=== PATIENT | female | born 1990 | race Caucasian/White ===

== ENCOUNTER 2017-06-23 18:01 | Day surgery (SDC) | payer BC ==
[2017-06-23 18:33] VITALS: BMI 27.6
[2017-06-23 18:34] VITALS: BP 118/72; TEMP 99.4
[2017-06-23 19:27] LABS: Amnisure Test No Membranes Rupture (No Rupture)
--- NOTE | 2017-06-23 21:13 | PRG ---
DATE OF SERVICE: 06/23/2017 PRIMARY OB: Dr. Dada Grigsby. CHIEF COMPLAINT: Abdominal pains. HISTORY OF PRESENT ILLNESS: The patient is a 27-year-old G1, P0 female with an intrauterine pregnanc y at 40 weeks and 0 days who has presented today with uterine contractions that have been off and on through the day. She reports the contractions are not severe at this time. She also reports that sh e had a little bit of leakage of fluid and was unsure if she had ruptured membranes. The patient barba s reports she had sex earlier today. She denies any urinary urgency or frequency. She denies vagina l bleeding. She reports she had a cold last week, but denies any other illnesses. PAST MEDICAL HISTORY: Negative. PAST SURGICAL HISTORY: Negative. OBSTETRIC HISTORY: This is her first . SOCIAL HISTORY: Denies alcohol, tobacco or drug use during this . She does report alcohol use prior to the . MEDICATIONS: vitamins. ALLERGIES: No known drug allergies. OB LABS: Blood type is O positive, antibody screen is negative. She is rubella immune, hepatitis B surface antigen is nonreactive, RPR nonreactive, HIV nonreactive. One hour Glucola is 80. Her third trimester HIV and RPR is negative and she is GBS positive. REVIEW OF SYSTEMS: Per HPI. PHYSICAL EXAMINATION: VITAL SIGNS: Blood pressure 118/72, heart rate of 75, respiratory rate of 20, temperature 99.4. GENERAL: She appears to be in no acute distress. She is alert and oriented, and cooperative and ple asant to interact with. HEAD: Normocephalic, atraumatic. LUNGS: Clear to auscultation bilaterally. HEART: Has regular rate and rhythm. ABDOMEN: Gravid, soft, nontender to palpation. EXTREMITIES: Nontender, nonedematous. CERVICAL EXAM: Per nursing staff is closed, thick and high. DIAGNOSTICS: heart tracing performed for threatened labor for approximately 40 minutes. Basel ine was noted to be in the 120s with moderate long-term variability, positive accelerations, no decel erations. Tocometer shows a lot of irritability, but no regular contraction pattern. AmniSure test is negative. ASSESSMENT AND PLAN: The patient is a 27-year-old G1, P0 female followed by Dr. Grigsby, who has prese nted today at 40 weeks gestation with irritability in latent labor. No signs of rupture of membranes . Fetus has a category 1 tracing. She is GBS positive. The patient has an appointment this Suly combs with Dr. Lange one of the Dr. Grigsby's partners, and is scheduled for induction of labor on . The patient is being discharged home with term labor precautions.
== END 2017-06-23 19:40 | disposition home or self-care (01) ==
LOC: L&D/OP 18:01
PROVIDERS: ATTEND Obstetrics & Gynecology
DX: O99.89 Other specified diseases and conditions complicating pregnancy, childbirth and the puerperium (principal); R10.9 Unspecified abdominal pain; Z3A.40 40 weeks gestation of pregnancy; Z79.899 Other long term (current) drug therapy
CPT/HCPCS: 84112; 99283

== ENCOUNTER 2017-07-01 14:10 | Inpatient (IN) | payer BC ==
[~2017-07-01 14:10] MED LIST: Bupivacaine HCl 0.5%/Epinephrine 1:200,000/PF 30 ml Vial ONE; Bupivacaine PF 0.5% 30 ML VIAL ONE; Bupivacaine/Epinephrine 0.25% 30 ML VIAL ONE; Lidocaine 2% PF 10 ML AMP (For Epidural Use) ONE
[2017-07-01] MEDS ORDERED: Promethazine HCl 25 MG/ML VIAL IM PRN (22:29)
[2017-07-01] MEDS ORDERED: Acetaminophen/Codeine 30-300mg Tablet PO PRN ×2 (22:29)
[2017-07-01] MEDS ORDERED: LR 500 ML/Oxytocin 10 units 500 ML IV SCH (22:29)
[2017-07-01] MEDS ORDERED: LR / Pitocin 40 units/1000 ml 1,000 ML IV PRN (22:29)
[2017-07-01] MEDS ORDERED: Lidocaine 1% (PF) 30 ML VIAL SC PRN (22:29)
[2017-07-01] MEDS ORDERED: Ondansetron HCl/PF 4 MG/2 ML Vial IVP PRN (22:29)
[2017-07-01] MEDS ORDERED: Ibuprofen 800 MG TAB PO PRN (22:29)
[2017-07-01 22:35] VITALS: BMI 28.3
[2017-07-01] MEDS ORDERED: Penicillin G Potassium 5 MILL.UNITS in Sodium Chloride 0.9% 100 ML IVPB SCH (22:45)
[2017-07-01] MEDS: Lactated Ringer's 1,000 ML IV SCH (23:12)
[2017-07-01 23:13] LABS: Hemoglobin 12.1 g/dL (12.0-16.0); Mean Corpuscular HGB CONC 34.8 g/dL (32.0-36.0); Mean Corpuscular Hemoglobin 31.8 pg (27.0-31.0); Mean Corpuscular Volume 91.4 fl (81.0-99.0); Mean Platelet Volume 7.6 fL (7.4-10.4); Platelet Count 155 thou/uL (130-400); RBC Distribution Width 12.1 % (11.5-14.5); White Blood Cell (WBC) Count 9.8 thou/uL (4.8-10.8)
[2017-07-01] MEDS: Misoprostol 100 MCG TAB VAG SCH (23:17)
[2017-07-01 23:53] LABS: Syphilis Antibody Nonreactive (Nonreactive); Syphilis Antibody Index 0.04 S/CO (<1.00 Non-Reactive)
[2017-07-01 23:54] LABS: HBSAg Index 0.38 S/CO (0-0.99); Hep B Surf Ag Non-Reactive S/CO (NonReactive)
[2017-07-02] MEDS: Penicillin G 2.5 MILL.units 2.5 MILL.UNITS in Premix Bag 1 BAG IVPB SCH ×5 (03:16→21:11)
[2017-07-02] MEDS: Misoprostol 100 MCG TAB VAG SCH ×3 (06:08→15:32)
[2017-07-02] MEDS: Lactated Ringer's 1,000 ML IV SCH ×3 (06:09→20:12)
[2017-07-02] MEDS: LR 500 ML/Oxytocin 10 units 500 ML IV SCH ×2 (06:21→22:54)
--- NOTE | 2017-07-02 13:05 | PDOC.LDHP ---
Labor and Delivery H&P Chief complaint: scheduled induction HPI: PT is a 27yo here for scheduled IOL for prolonged at 41 weeks. Presented w closed cervix and dilated to 1cm with one dose of cytotec, not able to received 2nd dose per protocol limits. Doing well, agreeable to Cook Balloon placement. Current gestational age (weeks): 41 Due date: 06/23/17 Dating criteria: last menstrual period, first trimester ultrasound Grav: 1 Para: 0 Current complications: none Abnormal US findings: No Current medications: pre-dina vitamins Previous surgical history: none Allergies/Adverse Reactions: Allergies Allergy/AdvReac Type Severity Reaction Status Date / Time No Known Allergies Allergy Unverified 07/01/17 22:36 Social history: none - Physical Exam Vital signs reviewed and normal: yes General: resting Lungs: nonlabored breathing Abdomen: gravid Extremeties: no edema FHT: category 1 - Vaginal Exam cm dilated: 1 Effacement: 50% - OB Labs Blood type: O RH: positive Antibody Screen: negative HIV: negative RPR: negative HEPSAg: negative 1 hour GCT: negative GBS: positive Urine drug screen: not done Rubella: immune - Assessment L&D Assessment: medically indicated induction - Plan Plan: admit to L&D, cervical ripening, labor augmentation if indicated, informed consent obtained, anesthesia consult for pain management -: A/P: 27yo @ 41.2 weeks here for scheduled IOL. Cook Balloon placed under direct visualization and without difficulty. Plan for cervical ripening with balloon + pitocin today, likely AROM after balloon removed. Pt agrees with plan of care. FHT reassuring.
--- NOTE | 2017-07-02 13:09 | PDOC.LDPN ---
Labor & Delivery Progress Note - Subjective Subjective: comfortable - Objective Vital signs reviewed and normal: yes General: resting Dilation: balloon in FHT: category 1 [place] contractions every: 3 Plan: continue plan of care -: Will continue to monitor, balloon in place.
[2017-07-02] MEDS ORDERED: Fentanyl 4 mcg/Marc 0.1% Cadd 100 ML ONE (18:49)
[2017-07-02] MEDS ORDERED: Eucerin (Mineral Oil/Petrolatum,White) 30 gm Jar TOP PRN (19:35)
[2017-07-02] MEDS ORDERED: Promethazine HCl 25 MG/ML VIAL IM PRN (19:35)
[2017-07-02] MEDS ORDERED: ePHEDrine/0.9% NaCl/PF SYRINGE 50 mg/10 ml SLOW IVP PRN (19:35)
[2017-07-02] MEDS ORDERED: Acetaminophen 325 MG TAB PO PRN (19:35)
[2017-07-02] MEDS ORDERED: Lactated Ringer's 500 ML IV PRN (19:35)
[2017-07-02] MEDS ORDERED: Ondansetron HCl/PF 4 MG/2 ML Vial IVP PRN (19:35)
[2017-07-02] MEDS ORDERED: diphenhydrAMINE 50 MG/ML VIAL IVP PRN (19:35)
[2017-07-02] MEDS ORDERED: Naloxone HCl 0.4 mg/ml Vial IVP PRN ×2 (19:35)
[2017-07-02] MEDS ORDERED: Communication Order-Pharmacy FS SCH (19:45)
[2017-07-02] MEDS: Fentanyl 4mcg/Marcaine 0.1% Cassette 100 ML EPIDURAL SCH (19:55)
--- NOTE | 2017-07-02 22:55 | PDOC.LDPN ---
Labor & Delivery Progress Note - Subjective Subjective: comfortable - Objective Vital signs reviewed and normal: yes General: breathing through contractions Dilation: 6 Effacement: 75% Station: -1 FHT: category 1 [place] contractions every: 2 Other exam findings: Cook Balloon removed AROM: clear fluid - Assessment (1) 41 weeks gestation of Code(s): Z3A.41 - 41 WEEKS GESTATION OF Current Visit: Yes Status : Acute Plan: labor augmentation
--- NOTE | 2017-07-03 00:28 | PDOC.LDPN ---
Labor & Delivery Progress Note - Subjective Subjective: comfortable - Objective Vital signs reviewed and normal: yes General: resting Dilation: 6 Effacement: 90% Station: -1 FHT: category 1 [place] contractions every: 2 - Assessment (1) 41 weeks gestation of Code(s): Z3A.41 - 41 WEEKS GESTATION OF Current Visit: Yes Status : Acute (2) 41 weeks gestation of Code(s): Z3A.41 - 41 WEEKS GESTATION OF Current Visit: Yes Status : Acute -: A/P: Transitioning to active labor, IUPC placed and immediately noted MVUs likely >300, pitocin decreased from 16 to 8mu/min.
[2017-07-03] MEDS: Penicillin G 2.5 MILL.units 2.5 MILL.UNITS in Premix Bag 1 BAG IVPB SCH ×4 (01:17→19:10)
[2017-07-03] MEDS: Lactated Ringer's 1,000 ML IV SCH (01:18)
[2017-07-03] MEDS: Fentanyl 4mcg/Marcaine 0.1% Cassette 100 ML EPIDURAL SCH ×2 (01:46→07:16)
[2017-07-03] MEDS: Misoprostol 100 MCG TAB VAG SCH ×3 (05:06→19:10)
[2017-07-03] MEDS ORDERED: CEFAZOLIN/Water 2 GM/20 ML SYRINGE ONE (08:39)
[2017-07-03] MEDS ORDERED: Bicitra 30 ML UDCUP ONE (08:39)
--- NOTE | 2017-07-03 08:41 | PDOC.LDPN ---
Labor & Delivery Progress Note - Subjective Subjective: comfortable - Objective Vital signs reviewed and normal: yes General: resting Dilation: 6 Effacement: 90% Station: 0 FHT: category 1 [place] contractions every: 2 - Assessment (1) 41 weeks gestation of Code(s): Z3A.41 - 41 WEEKS GESTATION OF Current Visit: Yes Status : Acute (2) 41 weeks gestation of Code(s): Z3A.41 - 41 WEEKS GESTATION OF Current Visit: Yes Status : Acute (3) Failure to progress in labor Code(s): O62.2 - OTHER UTERINE INERTIA Current Visit: Yes Status: Acute Plan: other -: A/P: No cervical change from exam at 0100 despite adequate MVUs, baby well applied to cervix, position changes and ROM x 14 hrs. Discussed indication for primary CS, pt agrees to plan of care.
[2017-07-03] MEDS ORDERED: CEFAZOLIN/Water 2 GM/20 ML SYRINGE SLOW IVP SCH (08:45)
[2017-07-03] MEDS ORDERED: Bicitra 30 ML UDCUP PO SCH (08:45)
[2017-07-03] MEDS ORDERED: Fentanyl 100 MCG/2 ML VIAL ONE (08:51)
[2017-07-03] MEDS ORDERED: Oxytocin 10 UNITS/ML VIAL ONE (09:02)
[2017-07-03] MEDS ORDERED: Morphine PF 1 MG/ML SYR ONE (09:02)
[2017-07-03] MEDS ORDERED: ePHEDrine/0.9% NaCl/PF SYRINGE 50 mg/10 ml ONE (09:03)
[2017-07-03] MEDS ORDERED: Misoprostol 200 MCG TAB ONE (09:34)
[2017-07-03] MEDS ORDERED: Meperidine HCl/PF 25 MG/ML VIAL SLOW IVP PRN (09:37)
[2017-07-03] MEDS ORDERED: Naloxone HCl 0.4 mg/ml Vial IVP PRN ×2 (09:37)
[2017-07-03] MEDS ORDERED: HYDROmorphone 2 MG/ML VIAL SLOW IVP PRN (09:37)
[2017-07-03] MEDS ORDERED: Naloxone HCl 0.4 mg/ml Vial IV PRN (09:37)
[2017-07-03] MEDS ORDERED: Promethazine HCl 25 MG SUPP PR PRN (09:37)
[2017-07-03] MEDS ORDERED: Eucerin (Mineral Oil/Petrolatum,White) 30 gm Jar TOP PRN (09:37)
[2017-07-03] MEDS ORDERED: Promethazine HCl 25 MG/ML VIAL IM PRN ×2 (09:37→12:47)
[2017-07-03] MEDS ORDERED: Ondansetron HCl/PF 4 MG/2 ML Vial IVP PRN ×3 (09:37→12:47)
[2017-07-03] MEDS ORDERED: diphenhydrAMINE 50 MG/ML VIAL IVP PRN (09:37)
[2017-07-03] MEDS ORDERED: Communication Order-Pharmacy FS SCH (09:45)
[2017-07-03] MEDS ORDERED: Lidocaine 2% PF 5 ML VIAL ONE (09:51)
[2017-07-03] MEDS ORDERED: Bupivacaine 0.25% HCL 30 ML VIAL ONE (09:52)
--- NOTE | 2017-07-03 10:01 | PDOC.OPDEL ---
OB Operative/Delivery Note Delivery Dr/Surgeon: Seb Assist: José Luis Pre-Delivery Diagnosis: medically indicated induction (failure to progress 6 cm) Procedure/Post Delivery Dx: primary low transverse CS (with extension at inferior right corner) Weeks gestation: 41 - Findings A Sex: female - 1 min: 2 - 5 min: 9 - Additional Findings/Plan Placenta delivered: manual removal findings: low transverse hysterotomy with extension (left inferior corner), normal tubes, normal ovaries Estimated blood loss: 1200ml Compilations/Other Findings: LTCS w extension at right inferior corner with hemostasis after approximation w monocryl. Surgicel placed over hysterotomy, bladder noted to be edematous as at the start of the case but melgar drains dark urine. Lower segment atony resolved w intrauterine cytotec and closure of hysterotomy. Post delivery plan: routine recovery
--- NOTE | 2017-07-03 10:46 | OP ---
DATE OF PROCEDURE: 07/03/2017 PREOPERATIVE DIAGNOSES: G1 at 41 weeks and 3 days with arrest of active phase at 6 cm. POSTOPERATIVE DIAGNOSIS: Status post primary low transverse section. SURGEON: Dada Grigsby D.O. PRUNE WASHER: Desean Ordonez M.D. TYPE OF ANESTHESIA: Epidural per Dr. Mo. COMPLICATIONS: None. ESTIMATED BLOOD LOSS: 1200 mL. INTRAOPERATIVE FINDINGS: 1. Low transverse hysterotomy with extension to the right inferior corner with hemostasis after repa ir, but cause of additional blood loss during the case. 2. Edematous bladder noted prior to the hysterotomy, but draining clear urine throughout the case. 3. Normal appearing tubes and ovaries bilaterally. 4. Vigorous female , Apgars 2 and 9, to nursery with weight pending at the time of dic tation, delivered from OP position. 5. All surgical sites hemostatic. PROCEDURE DETAILS: The patient was taken back to the OR with IV fluids running and a Mcnulty catheter that was previously placed. The patient was placed in dorsal supine position with a left lateral til t and the abdomen was prepped and draped in normal fashion for section. The abdomen was janelle katelynn, anesthesia was found to be adequate. A Pfannenstiel skin incision was made with a scalpel, skin incision was carried down through the subcutaneous layer to the fascia. Once the fascia was reached , it was incised in the midline and extended superior laterally using curved Daniel scissors. Raisa c lamps were placed at the superior border of the fascia, which was dissected off the rectus abdominis muscles in both caudad and cephalad directions to allow adequate delivery of . The rectus musc les were in the midline. The peritoneum was bluntly entered and stretched laterally. An A laura O retractor was placed into the peritoneal cavity for retraction, visualization and protection of the wound. The bladder was noted to be edematous and the bladder flap was created, gently dissect ing it away from the planned hysterotomy site. A low transverse hysterotomy was made with the scalpe l. A Guzman maneuver was used to extend the incision. The infant was delivered from occiput posterior position, with the head noted to be very tight within the pelvic inlet. The was delivered th rough the hysterotomy followed by the shoulders and the body. The 's cord was doubly clamped a nd cut. Nose and mouth were suctioned and the was handed off to special care nurses in [facility]. Cord blood was collected. The placenta was delivered. The uterus was exteriorized, massaged to firm, and cleared of clot and debris. Immediately a more than average amount of bleeding was note d from the right corner of the hysterotomy suggestive of an extension. The apex of the extension was immediately identified and ring forceps were placed at this corner as well as the contralateral corn er of the hysterotomy. The bladder was inspected and noted to be well away from the hysterotomy site and not involved in the extension. Prior to the closure of the hysterotomy, attention was focused a t the right corner of the incision which required a number of [id number] sutures from the apex m idline to achieve hemostasis. Once hemostasis was achieved in the right corner of the hysterotomy wa s closed in a running locked fashion. The closure was completed after the contralateral hysterotomy corner was secured and a running locked stitch was completed to close the hysterotomy in its entirety . After the hysterotomy was closed, both corners were inspected and noted to be hemostatic. The hys terotomy was copiously irrigated and suctioned dry. It was inspected with no areas of bleeding were noted. A layer of Surgicel was placed over the incision and bladder flap. The Dmitri O retractor wa s removed from the abdomen. The uterus was noted to be firm. Of note, during closure of the hystero humberto, the lower uterine segment was noted to be atonic and 800 mcg of Cytotec were placed within the intrauterine cavity. After the Dmitri O retractor was removed the fascia and muscle bellies were ins pected with no areas of bleeding noted. The fundus was again noted to be firm and no bleeding was no katelynn from the hysterotomy. The fascia was then closed with PDS suture in a running locked fashion fro m corner to corner. The subcutaneous tissue was then irrigated, no areas of bleeding were noted. Pl ain gut suture was used to reapproximate the subcutaneous tissue. The skin was closed with 4-0 Monoc ryl and the incision was dressed with Dermabond dressing. Sterile pressure dressing was then applied over the incision. The patient tolerated the procedure well. We discussed repeating her hemoglobin later this afternoon with the increased blood loss due to the uterine extension. The patient was st able during the and tolerated the procedure well. Baby's weight was pending at the time of this dictation. COUNTS: Correct x3.
[2017-07-03] MEDS ORDERED: Acetaminophen/Codeine 30-300mg Tablet PO PRN (12:47)
[2017-07-03] MEDS ORDERED: Lactated Ringer's 1,000 ML IV SCH (12:47)
[2017-07-03] MEDS ORDERED: Bisacodyl 10 MG SUPP PR PRN (12:47)
[2017-07-03] MEDS ORDERED: diphenhydrAMINE 25 MG CAP PO PRN (12:47)
[2017-07-03] MEDS ORDERED: Meperidine HCl/PF 25 MG/ML VIAL IM PRN (12:47)
[2017-07-03] MEDS ORDERED: LR w/ Pitocin 40 units/1000 ML BAG IV SCH (12:47)
[2017-07-03] MEDS ORDERED: Lanolin Ointment 7 GM TUBE TOP PRN (12:47)
[2017-07-03] MEDS ORDERED: Docusate Calcium (SURFAK) 240 MG CAP PO SCH ×2 (13:00→21:00)
[2017-07-03] MEDS ORDERED: Prenatal Vitamin 1 TAB PO SCH (13:00)
--- NOTE | 2017-07-03 15:03 | PRG ---
DATE OF SERVICE: 07/03/2017 This noted to documentation of assistant principal on a primary for patient Magali Sapp. PRIMARY SURGEON: Dr. Dada Grigsby. Please refer to her dictated note for complete details.
[2017-07-03] MEDS: Ibuprofen 800 MG TAB PO SCH ×2 (15:32→23:21)
[2017-07-03 15:39] LABS: Mean Corpuscular HGB CONC 34.9 g/dL (32.0-36.0); Mean Corpuscular Hemoglobin 32.4 pg (27.0-31.0); Mean Corpuscular Volume 92.7 fl (81.0-99.0); Mean Platelet Volume 7.5 fL (7.4-10.4); Platelet Count 102 thou/uL (130-400); RBC Distribution Width 12.1 % (11.5-14.5); Red Blood Cell (RBC) Count 2.77 mill/uL (4.20-5.40); White Blood Cell (WBC) Count 12.9 thou/uL (4.8-10.8)
[2017-07-03] MEDS: Ketorolac Tromethamine 30 MG/ML VIAL IVP PRN (17:16)
[2017-07-03] MEDS: Docusate Calcium (SURFAK) 240 MG CAP PO SCH (21:09)
[2017-07-04] MEDS: Ketorolac Tromethamine 30 MG/ML VIAL IVP PRN (02:46)
[2017-07-04] MEDS: Ibuprofen 800 MG TAB PO SCH ×3 (06:01→21:31)
[2017-07-04 08:40] LABS: Hemoglobin 8.1 g/dL (12.0-16.0); Mean Corpuscular HGB CONC 34.5 g/dL (32.0-36.0); Mean Corpuscular Hemoglobin 32.2 pg (27.0-31.0); Mean Corpuscular Volume 93.3 fl (81.0-99.0); Mean Platelet Volume 7.7 fL (7.4-10.4); Platelet Count 117 thou/uL (130-400); RBC Distribution Width 12.1 % (11.5-14.5); Red Blood Cell (RBC) Count 2.52 mill/uL (4.20-5.40); White Blood Cell (WBC) Count 10.8 thou/uL (4.8-10.8)
[2017-07-04] MEDS: Docusate Calcium (SURFAK) 240 MG CAP PO SCH ×2 (09:06→21:31)
[2017-07-04] MEDS: Prenatal Vitamin 1 TAB PO SCH (09:06)
[2017-07-04] MEDS: Acetaminophen/Codeine 30-300mg Tablet PO PRN ×2 (09:06→13:46)
[2017-07-04] MEDS: Simethicone Chewable 80 MG TAB PO PRN ×2 (09:08→21:31)
--- NOTE | 2017-07-04 11:33 | PDOC.PP ---
Post Progress Note Post Day #: 1 Subjective: Min lochia, clear urine overnight, melgar out his AM, feels well, no sx of anemia but aware of anemia. Had chill at midnight and had T100.8, WBC WNL for PP, no fever since. PO intake tolerated: yes Flatus: yes Ambulation: yes Vital Signs (12 hours) Temp Pulse Resp BP BP 07/04/17 08:34 97.8 F 91 20 104/61 07/04/17 08:00 97.8 F 91 20 07/04/17 03:45 97.8 F 97 18 98/54 L 07/04/17 02:00 18 07/04/17 01:50 98.6 F 07/04/17 00:00 100.8 F H 105 H 20 104/57 L Weight Weight 181 lb - Physical Examination General: NAD Respiratory: non-labored breathing Abdominal: no distention, appropriately TTP Fundus firm & at: below umb, NTTP Extremities: negative homans (B) Skin: CS incision dry & intact Neurological: no gross focal deficits Psychiatric: A&Ox3, normal affect Result Diagrams: 07/04/17 08:14 Additional Labs: Post Labs Blood Type O POSITIVE 07/01/17 22:42 Hep Bs Antigen Non-Reactive S/CO (NonReactive) 07/01/17 22:42 (1) 41 weeks gestation of Code(s): Z3A.41 - 41 WEEKS GESTATION OF Status: Acute (2) 41 weeks gestation of Code(s): Z3A.41 - 41 WEEKS GESTATION OF Status: Acute (3) Failure to progress in labor Code(s): O62.2 - OTHER UTERINE INERTIA Status: Acute - Assessment/Plan A/P: PPD #1 w T100.8 x 1 overnight, [facility] notified and observation done. No repeat fever, no sx of fever, no abn PE findings. Discussed will watch closely and treat with IV abx if fever returns. Disussed anemia as result of increased blood loss w extension at time of CS. Asx anemia now, will plan for iron outpt and continue to monitor for sx of anemia.
[2017-07-05] MEDS: Acetaminophen/Codeine 30-300mg Tablet PO PRN (04:28)
--- NOTE | 2017-07-05 06:21 | PDOC.PP ---
Post Progress Note Post Day #: 2 Subjective: Doing well. PO intake tolerated: yes Flatus: yes Ambulation: yes Vital Signs (12 hours) Temp Pulse Resp BP BP 07/05/17 04:00 98.6 F 77 16 115/58 L 07/04/17 23:20 97.6 F 71 16 103/56 L 07/04/17 20:00 97.8 F 96 16 116/62 07/04/17 18:21 97.6 F 99 20 115/72 Weight Weight 181 lb - Physical Examination General: NAD Cardiovascular: no m/r/g Respiratory: clear to auscultation bilaterally Abdominal: + bowel sounds Extremities: negative homans (B) Skin: CS incision dry & intact (sutured closed) Neurological: no gross focal deficits Psychiatric: A&Ox3, normal affect Result Diagrams: 07/04/17 08:14 Additional Labs: Post Labs Blood Type O POSITIVE 07/01/17 22:42 Hep Bs Antigen Non-Reactive S/CO (NonReactive) 07/01/17 22:42 (1) Delivered by section Code(s): O82 - ENCOUNTER FOR DELIVERY WITHOUT INDICATION Status: Acute - Assessment/Plan POD 2 doing well. S/P primary LTCS (failure to progress). Continue in-house observation today with likely discharge on POD 3.
[2017-07-05] MEDS: Ibuprofen 800 MG TAB PO SCH ×3 (06:40→21:42)
[2017-07-05] MEDS: Docusate Calcium (SURFAK) 240 MG CAP PO SCH ×2 (09:28→21:42)
[2017-07-05] MEDS: Prenatal Vitamin 1 TAB PO SCH (09:28)
[2017-07-05] MEDS ORDERED: Hydrocerin (Eucerin) Cream 120 gm Jar TOP PRN (21:12)
[2017-07-06] MEDS: Ibuprofen 800 MG TAB PO SCH (05:20)
--- NOTE | 2017-07-06 07:35 | PDOC.PP ---
Post Progress Note Post Day #: 3 PO intake tolerated: yes Flatus: yes Ambulation: yes Vital Signs (12 hours) Temp Pulse Resp BP Pulse Ox 07/05/17 21:40 98.1 F 78 18 115/70 100 Weight Weight 181 lb - Physical Examination General: NAD Cardiovascular: no m/r/g, RRR Respiratory: clear to auscultation bilaterally, non-labored breathing Abdominal: + bowel sounds, no distention, appropriately TTP Extremities: negative homans (B) Skin: CS incision dry & intact Neurological: no gross focal deficits Psychiatric: A&Ox3, normal affect Result Diagrams: 07/04/17 08:14 Additional Labs: Post Labs Blood Type O POSITIVE 07/01/17 22:42 Hep Bs Antigen Non-Reactive S/CO (NonReactive) 07/01/17 22:42 (1) Delivered by section Code(s): O82 - ENCOUNTER FOR DELIVERY WITHOUT INDICATION Status: Acute - Assessment/Plan dc home
[2017-07-06 09:23] VITALS: BP 113/71; TEMP 98.4
[2017-07-06] MEDS: Docusate Calcium (SURFAK) 240 MG CAP PO SCH (10:44)
[2017-07-06] MEDS: Prenatal Vitamin 1 TAB PO SCH (10:44)
== END 2017-07-06 14:45 | disposition home or self-care (01) | DRG 766 ==
LOC: L&D 22:08 → 3SW 07-03 12:38
PROVIDERS: ADMIT Obstetrics & Gynecology; ATTEND Obstetrics & Gynecology
PROC: 0U7C7ZZ Dilation of Cervix, Via Natural or Artificial Opening (ICD-10-PCS; 2017-07-01)
PROC: 3E033VJ Introduction of Other Hormone into Peripheral Vein, Percutaneous Approach (ICD-10-PCS; 2017-07-01)
PROC: 3E0P7VZ Introduction of Hormone into Female Reproductive, Via Natural or Artificial Opening (ICD-10-PCS; 2017-07-02)
PROC: 10907ZC Drainage of Amniotic Fluid, Therapeutic from Products of Conception, Via Natural or Artificial Opening (ICD-10-PCS; 2017-07-02)
PROC: 10H07YZ Insertion of Other Device into Products of Conception, Via Natural or Artificial Opening (ICD-10-PCS; 2017-07-02)
PROC: 4A1H74Z Monitoring of Products of Conception, Cardiac Electrical Activity, Via Natural or Artificial Opening (ICD-10-PCS; 2017-07-02)
PROC: 10D00Z1 Extraction of Products of Conception, Low, Open Approach (ICD-10-PCS; principal; 2017-07-03)
DX: O48.1 Prolonged pregnancy (principal); O62.1 Secondary uterine inertia; O75.89 Other specified complications of labor and delivery; Z3A.41 41 weeks gestation of pregnancy; Z37.0 Single live birth; O99.824 Streptococcus B carrier state complicating childbirth; O67.8 Other intrapartum hemorrhage; O62.2 Other uterine inertia
CPT/HCPCS: 36415; 51702; 85027; 86780; 86850; 86900; 86901; 87340; C1726; J0670; J1885; J2001; J2274; J2405; J2540; J2590; J3010; J7050; J7120; S0020